=== PATIENT | male | born 1995 | race Caucasian/White ===

== ENCOUNTER 2017-07-25 14:38 | Observation (INO) | payer BC, OTHER ==
--- NOTE | 2017-07-25 15:07 | EDPHY ---
H & P Time Seen by Provider: 07/25/17 14:56 HPI/ROS: CHIEF COMPLAINT: Left elbow injury HISTORY OF PRESENT ILLNESS: Happened just after 2:00 p.m. When he fell and [place] elbow [place] [employer] [place]. Pain in left elbow worse with movement or palpation. Does not radiate. Not associated with other injuries. No weakness or numbness in the left hand. REVIEW OF SYSTEMS: Eye: no change in vision ENT: no sore throat Cardiac: no chest pain or syncope Pulmonary: no cough or SOB Abdomen: no vomiting, diarrhea, abdominal pain Musculoskeletal: HPI Skin: Puncture wound left elbow Neuro: no headache, no head injury or loss of consciousness. No weakness or numbness in the left hand. Constitutional: no fever : no urinary symptoms A comprehensive 10 point review of systems is otherwise negative aside from elements mentioned in the history of present illness. PAST MEDICAL HISTORY: Negative except for previous left wrist fracture Social history: Last alcohol at 1:30 p.m., a beer. Last food at 11:15 a.m., brunch at his mom's house. General Appearance: Alert and conversant, cooperative. Eyes: No scleral icterus. ENT, Mouth: Normal mucous membranes. Respiratory: Normal respiratory effort, breath sounds equal, lungs are clear to auscultation. Cardiovascular: Regular rate and rhythm. Gastrointestinal: Abdomen is soft and non tender. Neurological: Alert, ambulatory, face symmetric. Normal motor and sensory left hand. Skin: 2 mm puncture wound over the left olecranon area of fracture. Normal range of motion of the shoulder and no clavicular or spinal tenderness. Small abrasion on the left shoulder at the deltoid. Elbow is held in extension with swelling posteriorly and pain to palpation. No humerus or forearm pain and compartments are soft and both upper arm and forearm. Left wrist and hand are nontender with good employment assistant strength and normal motor sensory and radial pulse in the left hand. Psychiatric: Not agitated. Emergency Department course/MDM: Patient does not know if his tetanus is up-to-date but he thinks it probably is. He will check tomorrow and get a updated vaccine in the next 2 days if his last 1 was more than 10 years. X-ray of the left elbow ordered. 1530: Results discussed with the patient. Appears to be a grade 1 displaced left olecranon fracture. Orthopedics is consulted Nathaly Kwon, discussed. Does not know what is penicillin allergy is, does not know if he can take cephalosporins, 600 mg IV clindamycin ordered. Discussed with Dr. Kwon, plan to go to the operating room tonight. Smoking Status: Current some day smoker Constitutional: Initial Vital Signs Temperature (C) 36.3 C 07/25/17 14:52 Heart Rate 94 07/25/17 14:52 Respiratory Rate 16 07/25/17 14:52 Blood Pressure 123/76 H 07/25/17 14:52 O2 Sat (%) 98 07/25/17 14:52 O2 Delivery Mode Room Air Allergies/Adverse Reactions: Penicillins Allergy (Verified 07/25/17 14:51) Home Medications: Medication Instructions Recorded NK [No Known Home Meds] 07/25/17 MDM/Departure - MDM Imaging Results: Imaging Impressions Elbow X-Ray 07/25/17 15:01 Impression: Acute displaced proximal ulnar fracture. Displaced left olecranon fracture. Imaging: I viewed and interpreted images myself Medications Given: Discontinued Medications Hydromorphone HCl (Dilaudid) 0.5 mg IVP EDNOW ONE Stop: 07/25/17 15:30 Last Admin: 07/25/17 15:30 Dose: 0.5 mg Clindamycin Phosphate/Dextrose (Cleocin 600 Mg (Premix)) 50 mls @ 100 mls/hr IV EDNOW ONE PRN Reason: Protocol Stop: 07/25/17 16:02 Last Admin: 07/25/17 15:38 Dose: 50 mls - Depart Disposition: To OP Cath/Surgery Clinical Impression: Fracture of olecranon, left, open Qualifiers: Encounter type: initial encounter Open fracture type: open type I or II Qualified Code(s): S52.022B - Displaced fracture of olecranon process without intraarticular extension of left ulna, initial encounter for open fracture type I or II Condition: Good
[2017-07-25] MEDS ORDERED: HYDROmorphONE/DILAUDID 2 MG/ML INJ ONE (15:27)
[2017-07-25] MEDS ORDERED: HYDROmorphONE/DILAUDID 1 MG/ML INJ IVP ONE (15:29)
[2017-07-25] MEDS ORDERED: CLINDAMYCIN 600 MG/DEXTROSE 50 ML IV ONE (15:33)
[2017-07-25] MEDS ORDERED: LIDOCAINE 1% 300 MG/30 ML SDV ONE (16:18)
[2017-07-25] MEDS ORDERED: BUPIVACAINE 0.5% 10 ML SDV ONE ×2 (16:19)
[2017-07-25] MEDS ORDERED: POLYMYXIN B SULFATE 500,000 UNIT/10 ML SYR IRR ONE (16:19)
[2017-07-25] MEDS ORDERED: BACITRACIN 50,000 UNITS/10 ML SYR IRR ONE (16:19)
[2017-07-25] MEDS ORDERED: MIDAZOLAM 2 MG/2 ML VIAL IVP ONE (16:31)
--- NOTE | 2017-07-25 16:35 | PDANEPAE ---
ANE History of Present Illness ORIF L olecranon Fx ANE Past Medical History - Pulmonary History Hx Oxygen in Use at Home: No Hx Sleep Apnea: No - Endocrine History Hx Diabetes: No ANE Review of Systems Review of Systems: - Exercise capacity Exercise capacity: >=4 METS ANE Patient History - Allergies Allergies/Adverse Reactions: Penicillins Allergy (Verified 07/25/17 14:51) - Home Medications Home medications: home medication list seen and reviewed Home Medications: NK [No Known Home Meds] 07/25/17 [Last Taken Unknown] - NPO status NPO Since - Liquids (Date): 07/25/17 NPO Since - Liquids (Time): 13:00 (beer) NPO Since - Solids (Date): 07/25/17 NPO Since - Solids (Time): 11:15 - Smoking Hx Smoking Status: Current some day smoker - Alcohol Use Alcohol Use: Occasionally - Family Anes Hx Family Anes Hx: none ANE Labs/Vital Signs - Vital Signs Blood Pressure: 94/80 Heart Rate: 74 Respiratory Rate: 18 O2 Sat (%): 95 Height: 187.96 cm Weight: 68.039 kg ANE Physical Exam - Airway Mallampati Score: Class 1 - Pulmonary Pulmonary: no respiratory distress - Cardiovascular Cardiovascular: regular rate and rhythym - ASA Status ASA Status: II, E (per Master-open fracture and so needs to go now) ANE Anesthesia Plan Anesthesia Plan: general endotracheal anesthesia
[2017-07-25] MEDS ORDERED: MIDAZOLAM 2 MG/2 ML VIAL ONE (16:37)
[2017-07-25] MEDS ORDERED: fentaNYL 100 MCG/2 ML INJ ONE ×2 (16:42→19:39)
[2017-07-25] MEDS ORDERED: REMIFENTANIL HCL 1 MG VIAL ONE (16:42)
[2017-07-25] MEDS ORDERED: PROPOFOL/EMULSION 500 MG/50 ML BOTTLE IV ONE (16:42)
[2017-07-25] MEDS ORDERED: LIDOCAINE HCL 160 MG/4 ML LTA KIT TP ONE (16:45)
--- NOTE | 2017-07-25 16:45 | SOAPPROG ---
SOAP Progress Note Assessment/Plan: Assessment:Henrry is a pleasant 22 year old male who presents to the ER today with left elbow pain and swelling after falling off his skateboard earlier today. He was found to have a olecranon fracture with overlying the fracture site with concern for an open fracture. PE: Small puncture wound overlying the posterior elbow with underlying swelling. TTP overlying the olecranon. Pain with gentle ROM. NV intact LUE. Plan: Risks, benefits, and alternatives to operative vs non-operative treatment were discussed and patient elects to proceed with operative intervention. Patient will be taken to the OR at its earliest availability. 07/25/17 16:41 Objective: Vital Signs Temp Pulse Resp BP Pulse Ox 37.1 C 74 18 94/80 L 95 07/25/17 16:20 07/25/17 16:34 07/25/17 16:34 07/25/17 16:34 07/25/17 16:34 ICD10 Worksheet Patient Problems: Problems Problem Status Onset Fracture of olecranon, left, open Acute
[2017-07-25] MEDS ORDERED: LIDOCAINE 2% 100 MG/5 ML SYR ONE (16:46)
[2017-07-25] MEDS ORDERED: LABETALOL HCL 5 MG/ML 20 ML MDV IVP PRN (18:57)
[2017-07-25] MEDS ORDERED: HYDROCODONE/APAP 5/325 TAB PO PRN (18:57)
[2017-07-25] MEDS ORDERED: OXYCODONE/APAP 5/325 TAB PO PRN (18:57)
[2017-07-25] MEDS ORDERED: LR 500 ML IV PRN (18:57)
[2017-07-25] MEDS ORDERED: DEXAMETHASONE 4 MG/ML VIAL IVP PRN (18:57)
[2017-07-25] MEDS ORDERED: METOCLOPRAMIDE 10 MG/2 ML VIAL IVP PRN (18:57)
[2017-07-25] MEDS ORDERED: PROMETHAZINE HCL 25 MG/ML INJ IVP PRN (18:57)
[2017-07-25] MEDS ORDERED: ACETAMINOPHEN 500 MG TAB PO PRN (18:57)
[2017-07-25] MEDS ORDERED: ONDANSETRON 4 MG/2 ML VIAL IVP PRN ×2 (18:57→19:12)
[2017-07-25] MEDS ORDERED: NALOXONE HCL 0.4 MG/ML INJ IVP PRN (18:57)
[2017-07-25] MEDS ORDERED: PHENYLEPHRINE HCL 100 MCG/ML SYR IVP PRN (18:57)
[2017-07-25] MEDS ORDERED: ALBUTEROL 3 ML DEYVIAL IH PRN (18:57)
[2017-07-25] MEDS ORDERED: HYDROmorphONE/DILAUDID 1 MG/ML INJ IVP PRN (19:12)
--- NOTE | 2017-07-25 19:16 | POSTANESTH ---
Post Anesthetic Evaluation Cardiovascular Status: Normal, Stable Respiratory Status: Normal, Stable Level of Consciousness/Mental Status: Can Participate in Eval Pain Control: Adequate, Prn Tx Ordered Nausea/Vomiting Control: Adequate, Prn Tx Ordered Complications Possibly Related to Anesthesia: None Noted
--- NOTE | 2017-07-25 19:28 | SOAPPROG ---
SOAP Progress Note Assessment/Plan: Assessment:Henrry is a pleasant 22 year old male POD#0 from left olecranon I&D and ORIF of open left olecranon fracture PE: Well molded posterior long arm splint in place. NV intact LUE. Plan: 1. Well molded long arm splint to remain CDI. Sling for comfort 2. NWB LUE 3. Clindamycin 600mg q8h for three doses beginning at 00:01 on Wednesday07/26/17 4. Plan for discharge home after finishing antibiotics. Prescription for pain medication in chart. patient will follow up with Dr. Kwon in 2 weeks for repeat evaluation, repeat radiographs, suture removal, and initiation of gentle ROM. 07/25/17 19:25 Objective: Vital Signs Temp Pulse Resp BP Pulse Ox 37.1 C 74 18 94/80 L 95 07/25/17 16:20 07/25/17 16:34 07/25/17 16:34 07/25/17 16:34 07/25/17 16:34 ICD10 Worksheet Patient Problems: Problems Problem Status Onset Fracture of olecranon, left, open Acute
[2017-07-25] MEDS ORDERED: TETANUS, DIPHTHERIA TOX (7YR+) 0.5 ML INJ IM ONE (19:30)
[2017-07-25] MEDS: fentaNYL 100 MCG/2 ML INJ IVP PRN ×2 (19:40→19:58)
[2017-07-25] MEDS: oxyCODONE IR 5 MG TAB PO PRN (21:00)
[2017-07-25] MEDS: HYDROmorphONE/DILAUDID 2 MG/ML INJ IVP PRN (21:00)
--- NOTE | 2017-07-25 21:32 | POSTOPPROG ---
Post Op Note Date of Operation: 07/25/17 Surgeon: Hermes Kwon Quantitative Consultant: Nathaly Paz PA-C Anesthesiologist: Craig Anesthesia: GET(General Endotracheal) Pre-op Diagnosis: Left open olecranon fracture Post-op Diagnosis: Left open olecranon fracture Indication: Left open olecranon fracture Procedure: I&D and ORIF left olecranon fracture Inf/Abcess present in the surg proc area at time of surgery?: No Depth: Deep Incisional (Fascial) EBL: 50-100
[2017-07-26] MEDS: CLINDAMYCIN 600 MG/DEXTROSE 50 ML IV SCH ×3 (00:11→13:49)
[2017-07-26] MEDS: HYDROmorphONE/DILAUDID 2 MG/ML INJ IVP PRN ×3 (00:25→09:31)
--- NOTE | 2017-07-26 01:23 | GCON ---
[f rep st] CONSULTATION ORTHOPEDIC CONSULTATION HISTORY OF PRESENT ILLNESS: This is a very pleasant 22-year-old male who sustained a fall onto his o utstretched left upper extremity earlier today when he was skateboarding. He was taken to the [facility] where he was found to have a laceration overlying the posterior aspect of h is olecranon. In addition, he was also found to have a left olecranon fracture. There was concern f or possibility of a grade I open left olecranon fracture. ASSESSMENT AND PLAN: This is a 22-year-old male with left olecranon fracture with concern for grade I open fracture. As such, we discussed the patient fully understood the risks, benefits, alternatives, and complications of forms of treatment and wished to proceed with the aforementioned left elb ow irrigation and debridement as well as left elbow olecranon open reduction and internal fixation. He signed informed consent for surgery, and surgery will be performed as soon as a the operating room was available. /[id number]/MODL
--- NOTE | 2017-07-26 02:03 | GOP ---
[f rep st] OPERATIVE REPORT DATE OF OPERATION: 07/25/2017 SURGEON: Hermes Kwon MD BUDGET CLERK: Nathaly Paz PA-C. PREOPERATIVE DIAGNOSIS: 1. Left elbow posterior laceration. 2. Left elbow olecranon fracture. POSTOPERATIVE DIAGNOSIS: 1. Left elbow posterior laceration. 2. Left elbow olecranon fracture. PROCEDURE PERFORMED: 1. Left elbow irrigation and debridement. 2. Left elbow olecranon open reduction, internal fixation.\. FINDINGS: ESTIMATED BLOOD LOSS: 3 cc. DESCRIPTION OF PROCEDURE: The patient is a very pleasant 22-year-old male, who underwent a left elbo w laceration exploration with irrigation and debridement, as well as left elbow olecranon open reduct ion, internal fixation utilizing a locking olecranon plate. COMPLICATIONS: None. IMPLANTS: Synthes 2.7 mm , 3.5 mm locking olecranon plate with a combination of 2.7 mm met aphyseal locking screws as well as 3.5 mm fully-threaded cortical screws. TOURNIQUET TIME: 100 minutes at 250 mmHg. /[id number]/MODL
[2017-07-26] MEDS: oxyCODONE IR 5 MG TAB PO PRN ×3 (05:49→14:23)
[2017-07-26 11:33] VITALS: BP 117/63; PULSE 55; RESP 16; TEMP 98.2; O2SAT 96
--- NOTE | 2017-07-26 16:44 | ASMTCMCOM ---
CM Note CM Note Notes: PT rec home, pt will d/c to mother home. No CM d/c needs identified. Date Signed: 07/26/2017 04:44 PM Electronically Signed By:WALTER Gale
== END 2017-07-26 14:44 | disposition home or self-care (01) ==
LOC: FSGY 16:13 → F3N 16:32
PROVIDERS: ADMIT Orthopaedic Surgery Hand Surgery; ATTEND Orthopaedic Surgery Hand Surgery
PROC: 0PSL04Z Reposition Left Ulna with Internal Fixation Device, Open Approach (ICD-10-PCS; principal; 2017-07-25 16:45)
DX: S52.022B Displaced fracture of olecranon process without intraarticular extension of left ulna, initial encounter for open fracture type I or II (principal); S51.012A Laceration without foreign body of left elbow, initial encounter; F17.200 Nicotine dependence, unspecified, uncomplicated; V00.131A Fall from skateboard, initial encounter; Y93.51 Activity, roller skating (inline) and skateboarding; Y92.830 Public park as the place of occurrence of the external cause; Z88.0 Allergy status to penicillin
CPT/HCPCS: 24685; 73080; 96365; 96375; 97161; 99285; G0378; C1713; J1170; J2001; J2250; J2370; J2704; J3010